=== PATIENT | female | born 1990 | race Caucasian/White ===

== ENCOUNTER 2016-08-08 01:07 | Emergency (ER) | payer BC ==
[~2016-08-08] VITALS: Ht 167.6 cm; Wt 84.0 kg
[2016-08-08 01:15] VITALS: BP 111/75; PULSE 117; RESP 16; TEMP 98.8; O2SAT 98
[2016-08-08] MEDS ORDERED: CIPR0.2S RIGHT EAR (01:35)
[2016-08-08] MEDS ORDERED: IBUP800T23 PO (01:35)
--- NOTE | 2016-08-08 01:35 | PD ---
HPI Chief Complaint: ENT Complaint Time Seen by Provider: 01:31 Travel History International Travel<30 days: No Contact w/Intl Traveler<30days: No Traveled to known affect area: No History of Present Illness HPI 26-year-old female presents to the emergency department for complaint of 24 hours of progressive worsening bilateral ear pain right greater than left. No fever no chills no nausea no vomiting no sore throat no sinus pressure drainage or productive cough. Patient denies any injury or fall. Patient states she took acetaminophen without pain relief. Patient presents for increasing ear pain. Patient does use head sets 1 playing computer games. Patient's had no drainage from the ear. Patient rates pain 7/10 in intensity. Unable to identify exacerbating or alleviating factors. PFSH Past Medical History Narrative Medical Negative past medical history negative surgical history no tobacco use alcohol use nursing notes reviewed Medical History: Denies Significant Hx Tetanus Vaccination: > 5 Years Influenza Vaccination: No ?: Not LMP: 2 weeks ago Past Surgical History Surgical History: No Previous Surgery Social History Alcohol Use: No Tobacco Use: No Allergies-Medications (Allergen,Severity, Reaction): Coded Allergies: No Known Allergies (Unverified , 08/08/16) Reported Meds & Prescriptions Reported Meds & Active Scripts Active Ciprofloxacin Otic Drops 0.2% Soln 0.25 Ml RIGHT EAR BID Ibuprofen 800 Mg Tab 800 Mg PO Q8H PRN Review of Systems Except as stated in HPI: all other systems reviewed are Neg General / Constitutional: No: Fever, Chills HENT: Positive: Ear Discharge, Earache, No: Headaches, Sore Throat, Rhinorrhea , Congestion Cardiovascular: No: Chest Pain or Discomfort Respiratory: No: Shortness of Breath Gastrointestinal: No: Abdominal Pain Genitourinary: No: Flank Pain Musculoskeletal: No: Pain Skin: No Rash Neurologic: No: Weakness Psychiatric: Positive: Anxiety Hematologic/Lymphatic: No: Lymph Node Enlargement Physical Exam Narrative GENERAL: Well-developed well-nourished slightly disheveled female in no acute distress or respiratory distress SKIN: Warm and dry. HEAD: Normocephalic. EYES: No scleral icterus. No injection or drainage. ENT: Mucous membranes moist airway is patent bilateral tympanic membranes no redness no dullness or loss of landmarks however external auditory canal right greater than left edema and erythema without retained foreign body or purulent drainage. NECK: Supple, trachea midline. No JVD or lymphadenopathy. CARDIOVASCULAR: Regular rate and rhythm without murmurs, gallops, or rubs. RESPIRATORY: Breath sounds equal bilaterally. No accessory muscle use. GASTROINTESTINAL: Abdomen soft, non-tender, nondistended. Data Data Last Documented VS Vital Signs Date Time Temp Pulse Resp B/P Pulse Ox O2 Delivery O2 Flow Rate FiO2 08/08/16 01:15 98.8 117 16 111/75 98 Orders Ibuprofen (Motrin) (08/08/16 01:45) Qjnonlri-Dmzorkkh-Bi Otic Soln (Cortispo (08/08/16 01:45) Acetamin-Hydrocod 325-5 Mg ([place] 5-325 (08/08/16 01:45) MDM Medical Decision Making Medical Screen Exam Complete: Yes Emergency Medical Condition: Yes Medical Record Reviewed: Yes Differential Diagnosis Otalgia, otitis media, otitis externa, sinusitis; also to consider TMJ dentalgia Narrative Course Patient given first dose of ibuprofen and Lortab in the emergency department and eardrops Diagnosis Primary Impression: Otalgia, bilateral Additional Impression: Right otitis externa Qualified Code: H60.501 - Acute otitis externa of right ear, unspecified type Referrals: Primary Care Physician call for appointment Patient Instructions: General Instructions Additional Instructions: Complete course of eardrops Take ibuprofen prescription strength as needed for pain associated with inflammation or pain greater than 5/10 in intensity Use acetaminophen/Tylenol every 4 hours for fever 100.4F or greater or for minor pain May use nasal decongestant spray such as Afrin as needed for sinus congestion avoid overuse of medication or use of medicine for greater than 3 days Follow-up with primary care provider Return to the emergency department for any concerns or change in condition Med/Other Pt SpecificInfo: Prescription(s) given Scripts Ciprofloxacin Otic Drops 0.2% Soln0.25 Ml RIGHT EAR BID #1 BOX Ref 0 Prov:Elena Campoverde MD 08/08/16 Ibuprofen 800 Mg Lov059 Mg PO Q8H PRN (PAIN GREATER THAN 5) #12 TAB Ref 0 Prov:Elena Campoverde MD 08/08/16 Disposition: 01 DISCHARGE HOME Condition: Stable Elena Campoverde MD Aug 08, 2016 01:35
[2016-08-08] MEDS ORDERED: IBUPROFEN 800 MG TAB PO ONE (01:45)
[2016-08-08] MEDS ORDERED: NEOMYCIN/POLYMYXIN/HYDROCORT OTIC SOLN 10 ML BTL EACH EAR ONE (01:45)
[2016-08-08] MEDS ORDERED: ACETAMINOPHEN/HYDROcodone 325 MG/5 MG TAB PO ONE (01:45)
[2016-08-08 02:13] VITALS: RESP 17
[2016-08-09] MEDS ORDERED: CIPR-9 PO (08:04)
[2016-08-09] MEDS ORDERED: TRAM50TA PO (08:04)
== END 2016-08-08 02:18 | disposition home or self-care (01) ==
LOC: PHED 01:07
DX: H92.03 Otalgia, bilateral (principal); H60.91 Unspecified otitis externa, right ear
CPT/HCPCS: 99283

== ENCOUNTER 2016-08-09 04:52 | Emergency (ER) | payer BC ==
[~2016-08-09] VITALS: Ht 167.6 cm; Wt 83.8 kg
[~2016-08-09 04:52] MED LIST: CIPR0.2S RIGHT EAR; IBUP800T23 PO
[2016-08-09 05:01] VITALS: BP 97/68; PULSE 109; RESP 14; TEMP 98.4; O2SAT 96
[2016-08-09 07:09] VITALS: BP 97/68; PULSE 109; RESP 14; TEMP 98.4; O2SAT 96
[2016-08-09] MEDS ORDERED: CIPR-9 PO (08:04)
[2016-08-09] MEDS ORDERED: TRAM50TA PO (08:04)
== END 2016-08-09 07:40 | disposition left against medical advice (07) ==
LOC: PHED 04:52
DX: H92.03 Otalgia, bilateral (principal)
CPT/HCPCS: 99281

== ENCOUNTER 2016-08-09 07:37 | Emergency (ER) | payer BC ==
[~2016-08-09] VITALS: Ht 167.6 cm; Wt 83.8 kg
[2016-08-09 07:39] VITALS: BP 118/72; PULSE 109; RESP 16; TEMP 98.8; O2SAT 100
[2016-08-09] MEDS ORDERED: CIPR-9 PO (08:04)
[2016-08-09] MEDS ORDERED: TRAM50TA PO (08:04)
--- NOTE | 2016-08-09 08:11 | PD ---
HPI Chief Complaint: ENT Complaint Time Seen by Provider: 08:04 Travel History International Travel<30 days: No Contact w/Intl Traveler<30days: No Traveled to known affect area: No History of Present Illness HPI 26-year-old female presents the emergency Department with ongoing bilateral otalgia. Patient states the pain is 9 out of 10 bilaterally warm the right than the left. Patient was seen yesterday by Dr. Campoverde and given Ciprodex drops and ibuprofen. Patient states the pain is excruciating and is requesting something for it. She denies fever, chills, headache, sore throat, or drainage from the ear. She has no known drug allergies. PFSH Past Medical History Developmental Delay: Yes (asperger's disorder) ?: Not LMP: 07/24/16 Social History Alcohol Use: No Tobacco Use: No Substance Use: No Allergies-Medications (Allergen,Severity, Reaction): Coded Allergies: No Known Allergies (Unverified , 08/09/16) Reported Meds & Prescriptions Reported Meds & Active Scripts Active Cipro (Ciprofloxacin HCl) 500 Mg Tab 500 Mg PO BID Tramadol (Tramadol HCl) 50 Mg Tab 50 Mg PO Q6H PRN Ciprofloxacin Otic Drops 0.2% Soln 0.25 Ml RIGHT EAR BID Ibuprofen 800 Mg Tab 800 Mg PO Q8H PRN Review of Systems Except as stated in HPI: all other systems reviewed are Neg General / Constitutional: No: Fever Eyes: No: Visual changes HENT: Positive: Earache (severe.), No: Headaches, Vertigo, Lightheadedness, Sore Throat, Rhinitis, Rhinorrhea, Congestion, Nosebleed, Neck Stiffness, Neck Pain, Ear Discharge Cardiovascular: No: Chest Pain or Discomfort Respiratory: No: Cough, Shortness of Breath, Wheezing Gastrointestinal: No: Nausea, Vomiting, Diarrhea, Abdominal Pain Genitourinary: No: Dysuria Musculoskeletal: No: Pain Skin: No Rash Neurologic: No: Weakness Psychiatric: No: Depression Endocrine: No: Polydipsia Hematologic/Lymphatic: No: Easy Bruising Physical Exam Narrative GENERAL: Patient is in moderate distress. SKIN: Warm and dry. Normal color. Normal turgor. HEAD: Atraumatic. Normocephalic. EYES: Pupils equal and round. No scleral icterus. No injection or drainage. ENT: No nasal bleeding or discharge. Mucous membranes pink and moist. Pharynx is clear. Airway is patent. No sinus tenderness. Patient has pain with motion of the pinna bilaterally more on the right than the left. Right tympanic membranes is unremarkable, however the ear canal is moderately swollen and severely tender with examination. Left TM is normal as well, with some mild swelling of the ear canal with moderate tenderness as well. NECK: Trachea midline. Supple and nontender without significant lymphadenopathy. CARDIOVASCULAR: Regular rate and rhythm. RESPIRATORY: No accessory muscle use. Clear to auscultation. Breath sounds equal bilaterally. MUSCULOSKELETAL: Extremities without clubbing, cyanosis, or edema. No obvious deformities. NEUROLOGICAL: Awake and alert. No obvious cranial nerve deficits. Motor grossly within normal limits. Five out of 5 muscle strength in the arms and legs. Normal speech. PSYCHIATRIC: Appropriate mood and affect; insight and judgment normal. Data Data Last Documented VS Vital Signs Date Time Temp Pulse Resp B/P Pulse Ox O2 Delivery O2 Flow Rate FiO2 08/09/16 07:39 98.8 109 16 118/72 100 MDM Medical Decision Making Medical Screen Exam Complete: Yes Emergency Medical Condition: Yes Differential Diagnosis Severe otalgia. Otitis media. Otitis externa. Mastoiditis Narrative Course Patient is continued on Ciprodex optic drops as previously prescribed.. Patient is continue on ibuprofen 800 mg 3 times daily with food as previous. Patient was started on Cipro by mouth 500 mg twice a day 7 days. Patient also given tramadol 50 mg 1 tablet every 6 hours when necessary pain. Patient is to avoid getting water in the ear and using warm compresses as discussed. Patient follow with her primary care physician or return to the ED with worsening symptoms as needed. Diagnosis Primary Impression: Otalgia, bilateral Additional Impression: Right otitis externa Referrals: Primary Care Physician Patient Instructions: General Instructions, Otitis Externa (ED) Additional Instructions: Patient is continued on Ciprodex optic drops as previously prescribed.. Patient is continue on ibuprofen 800 mg 3 times daily with food as previous. Patient was started on Cipro by mouth 500 mg twice a day 7 days. Patient also given tramadol 50 mg 1 tablet every 6 hours when necessary pain. Patient is to avoid getting water in the ear and using warm compresses as discussed. Patient follow with her primary care physician or return to the ED with worsening symptoms as needed. Med/Other Pt SpecificInfo: Prescription(s) given Scripts Ciprofloxacin (Cipro)500 Mg [id number] Mg PO BID #14 TAB Prov:Rosemary Velásquez MD 08/09/16 Tramadol 50 Mg Tab50 Mg PO Q6H PRN (PAIN) #20 TAB Prov:Rosemary Velásquez MD 08/09/16 Disposition: 01 DISCHARGE HOME Condition: Stable Marquis Zhong Aug 09, 2016 08:11
== END 2016-08-09 08:22 | disposition home or self-care (01) ==
LOC: NEPK 07:37
DX: H92.03 Otalgia, bilateral (principal); H60.91 Unspecified otitis externa, right ear; F84.5 Asperger's syndrome
CPT/HCPCS: 99284